=== PATIENT | female | born 1970 | race Caucasian/White ===

== ENCOUNTER 2016-07-26 07:50 | Day surgery (SDC) | payer BC, MEDICAID ==
[2016-07-26 08:04] VITALS: BMI 29.2
[2016-07-26] MEDS ORDERED: cefOXitin IV 2 gm in Dextrose 0 GM/0 ML BAG IVPB ONE (09:27)
[2016-07-26] MEDS ORDERED: cefOXitin IV 1 gm in Dextrose 1 GM/50 ML BAG IVPB ONE (09:27)
[2016-07-26] MEDS ORDERED: Propofol 10 mg/ml Inj (20 ML) ONE (09:33)
[2016-07-26] MEDS ORDERED: Midazolam 2 MG/2 ML VIAL ONE (09:33)
[2016-07-26] MEDS ORDERED: Lactated Ringer's 1,000 ML IV ONE ×2 (09:35→11:10)
--- NOTE | 2016-07-26 10:35 | PCM.SURG1 ---
Surgeon's Initial Post Op Note - Surgeon's Notes Surgeon: dr faith Crime Scene Investigator: none Type of Anesthesia: General LMA Anesthesia Administered By: dr coates Pre-Operative Diagnosis: 45 yr with menorrhagia/ r/o fibroid Operative Findings: see the op reoprt Post-Operative Diagnosis: same with submusal fibroid Operation Performed: myasure/d c, hysterscopy Specimen/Specimens Removed: ecc. emc. submusal fibroid Estimated Blood Loss: EBL {In ML}: 50 Blood Products Given: N/A Drains Used: No Drains Post-Op Condition: Good Date of Surgery/Procedure: 07/26/16 Time of Surgery/Procedure: 10:00
[2016-07-26] MEDS: HYDROmorphone 0.5 mg/0.5 ml ISec IVP PRN ×2 (10:55→11:11)
--- NOTE | 2016-07-26 12:57 | OP ---
PROCEDURE DATE: 07/26/2016 PREOPERATIVE DIAGNOSIS: A 45-year-old, 2, para 2, with menorrhagia; rule out fibroid. POSTOPERATIVE DIAGNOSIS: A 45-year-old, 2, para 2, with menorrhagia; rule out fibroid. Subm ucosal fibroid ____ cm. SURGEON: Eliezer Porter MD [employer] DEPARTMENT FLOORPERSON SURGEON: None. ANESTHESIA: General anesthesia. ANESTHESIOLOGIST: Dr. Campos. PROCEDURE PERFORMED: MyoSure, dilation and curettage, hysteroscopy. COMPLICATIONS: None. DEFICIT: 900 mL. PROCEDURE: After informed consent, the patient was brought to the operating room, placed on the tabl e where general anesthesia was given. When anesthesia ____ was prepped and draped in normal sterile fashion. Examination found uterus to be 8 weeks size. No palpable adnexal masses. Anterior lip of the cervix was grasped with the tenaculum. Gentle dilatation of the cervix done. The hysteroscope w as introduced. There was found to be a ____ on the anterior wall of the uterus, about ____ cm. Deci danitza was made to do MyoSure. MyoSure ____ instrument was used to do a MyoSure. Submucosal fibroid w as scraped out under visualization through the hysteroscope; it was removed. The MyoSure was removed . After that, the sharp curettage of the endometrium was done and then the ECC was done; it was sent to pathology. Once the ____ was introduced, it was found to be. There was no fibroid. Pictures we re taken after that. The patient tolerated the procedure well. Laps, sponge, and instruments counts correct x 2. Eliezer Porter MD cc: [id number] TT: 07/26/2016 12:54:52 va
[2016-07-26 14:44] VITALS: BP 116/65; PULSE 70; RESP 18; TEMP 97.8; O2SAT 98
--- NOTE | 2016-07-30 12:49 | CARD ---
APPROVED REPORT EKG Measurement Heart [id number] <Conclusion> Normal sinus rhythm with sinus arrhythmia Possible Inferior infarct, age undetermined Abnormal ECG
== END 2016-07-26 13:30 | disposition home or self-care (01) ==
LOC: MERGE 07:50 → C.SDS 07:50
PROVIDERS: ATTEND Obstetrics & Gynecology
DX: D25.0 Submucous leiomyoma of uterus (principal); N92.0 Excessive and frequent menstruation with regular cycle; I10 Essential (primary) hypertension; M19.90 Unspecified osteoarthritis, unspecified site; Z98.890 Other specified postprocedural states; Z79.899 Other long term (current) drug therapy